=== PATIENT | male | born 1980 | race Caucasian/White ===

== ENCOUNTER 2024-11-29 01:31 | Day surgery (SDC) | payer BC, SELFPAY ==
[2024-11-20 09:46] VITALS: BMI 38.5
--- OUTSIDE RECORDS SUMMARY | 2024-11-29 01:34 | XMS_ITS | Referral Summary ---
Author Organization [facility] [place] [facility] Address [facility] [place] [address] Care Team Providers Care Professor Of Political Science Name Role Phone No, Physician Primary Care Provider [phone] Allergies No known active allergies Medications atomoxetine (STRATTERA) 40 mg capsule Take 1 capsule by mouth daily 08/17/2018 Active metoprolol XL (TOPROL-XL) 50 mg 24 hr tablet Take 50 mg by mouth daily 09/02/2018 Active benazepril (LOTENSIN) 10 mg tablet Take 1 tablet by mouth daily 06/14/2018 Active Active Problems Problem Noted Date Diagnosed Date Left elbow pain 05/30/2019 Social History Tobacco Use Types Packs/Day Years Used Date Smoking Tobacco: Never Smokeless Tobacco: Never Alcohol Use Standard Drinks/Week Comments Yes 0 (1 standard drink = 0.6 oz pur e alcohol) Personal Safety Answer Date Recorded Getting School Help Needed Not on file 08/27 Sex and Gender Information Value Date Recorded Sex Assigned at Not on file Legal Sex Male 7:23 PM USER EXPERIENCE RESEARCHER Gender Identity Not on file Sexual Orientation Not on file Occupation Industry Job Start Date Job End Date Teacher Not on file Not on file Not on file Last Filed Vital Signs Vital Sign Reading Time Taken Comments Blood Pressure 132/76 05/26/2013 6:17 AM USER EXPERIENCE RESEARCHER Pulse 81 05/26/2013 6:17 AM USER EXPERIENCE RESEARCHER Temperature 2.6 C (36.7 F) 05/26/2013 6:17 AM USER EXPERIENCE RESEARCHER Respiratory Rate - - Oxygen Saturation 94% 05/26/2013 6:17 AM USER EXPERIENCE RESEARCHER Inhaled Oxygen Concentration - - Weight 131.5 kg (290 lb) 02/04/2017 2:00 PM CDT Height 188 cm (6' 2) 02/04/2017 2:00 PM CDT Body Mass Index 37.23 02/04/2017 2:00 PM CDT Plan of Treatment Not on file Insurance Care Teams Professor Of Political Science Relationship Specialty Start Date End Date No, Physician PCP - General 05/29/19
--- OUTSIDE RECORDS SUMMARY | 2024-11-29 01:34 | XMS_ITS | Clinical Summary ---
Author Organization [facility] Care Team Providers Care Mathematician Research Name Role Phone Unavailable Primary Care Provider Unavailabl e Social History Tobacco Use Types Packs/Day Years Used Date Smoking Tobacco: Never Assessed Sex and Gender Information Value Date Recorded Sex Assigned at Not on file Legal Sex Male 9:42 AM CROZE CUTTER Gender Identity Not on file Sexual Orientation Not on file Plan of Treatment Health Maintenance Due Date Last Done Comments Hepatitis C Virus (HCV) Screening 1978 TdaP Immunization 1978 Hepatitis B Immunization (1 of 3 - 19+ 3-dose series) 1997 Colonoscopy 12/11/2023 Colorectal Cancer Screening 12/11/2023 Influenza Immunization (#1) 2024 03/19/2015 SARS-COV-2 Immunization ( season) 2024 02/06/2021, 08/03/2020 Respiratory Syncytial Virus (RSV) Immunization (Adult) (1 - 1-dose 75+ series) 2053 Meningococcal Immunization (ACWY) Aged Out No longer eligible b ased on patient's age to complete this topic Pneumococcal Immunization Combined Aged Out No longer eligible b ased on patient's age to complete this topic Rotavirus Immunization Aged Out No lo nger eligible based on patient's age to complete this topic
--- OUTSIDE RECORDS SUMMARY | 2024-11-29 01:34 | XMS_ITS | Clinical Summary ---
Author Organization [facility] [employer] Address [address] [place] [address] Care Team Providers Care Outreach Clinician Name Role Phone Samy Wilder MD Primary Care Provider [phone] Source Comments [facility],non-owned Affiliates and Associated Physician Practices is amultiple site organization consisting of ambulatory clinics and hospital sitesin [place], [place], [place] and [place]. This disclosure is being madepursuant to the Care Everywhere program and may not contain all information available regarding this patient. Last updated 18.[facility] [employer] Allergies No known active allergies Medications * Be aware that medications may not be up to date on this document. Alwaysverify current medications with the patient. atomoxetine (STRATTERA) 40 MG capsule Take 1 capsule by mouth once daily 2 08/17/2018 Active benazepril (LOTENSIN) 10 MG tablet Take 1 tablet by mouth once daily 2 06/14/2018 Active metoprolol succinate XL 24hr (TOPROL XL) 50 MG tablet Take 1 tablet by mouth once daily 90 tablet 4 09/02/2018 Active omeprazole (PRILOSEC) 20 MG capsule Take 1 capsule by mouth once daily 90 capsule 4 09/02/2018 Active Active Problems Problem Noted Date Diagnosed Date Palpitations 09/04/2018 Chest pain 09/04/2018 Heart palpitations 09/04/2018 Paroxysmal SVT (supraventricular tachycardia) Essential hypertension 09/04/2018 Class 3 severe obesity due t o excess calories without serious comorbidity with body mass index (BMI) of 40.0 to 44.9 in adult 09/04/2018 Social History Tobacco Use Types Packs/Day Years Used Date Smoking Tobacco: Never Smokeless Tobacco: Never Sex and Gender Information Value Date Recorded Sex Assigned at Not on file Legal Sex Male 11:23 AM CDT Gender Identity Not on file Sexual Orientation Not on file Last Filed Vital Signs Vital Sign Reading Time Taken Comments Blood Pressure 148/98 09/02/2018 3:51 PM CDT Pulse 76 09/02/2018 3:51 PM CDT Temperature - - Respiratory Rate - - Oxygen Saturation 100% 09/02/2018 3:51 PM CDT Inhaled Oxygen Concentration - - Weight 145.2 kg (320 lb) 09/02/2018 3:51 PM CDT Height 188 cm (6' 2) 09/02/2018 3:51 PM CDT Body Mass Index 41.09 09/02/2018 3:51 PM CDT Plan of Treatment Health Maintenance Due Date Last Done Comments COLOGUARD (AGES 45-75) - COL ON CA SCREENING 1978 COLON MONITORING 1978 COLONOSCOPY - COLON CA SCREENING 1978 CT COLONOGRAPHY - COLON CA SCREENING 1978 Colorectal Cancer Screening 1978 FIT - COLON CA SCREENING 1978 FLEX SIG - COLON CA SCREENING 1978 LIPID TESTING 1978 HIV SCREENING 1993 HEPATITIS C SCREENING 12/05/1996 DTAP/TDAP/TD VACCINES (1 - Tdap) 1997 HEPATITIS B VACCINE (1 of 3 - 19+ 3-dose series) 1997 COVID-19 VACCINE (1 - 2023-2 5 season) 2024 DEPRESSION SCREENING 06/14/2024 INFLUENZA VACCINE (Season Ended) 2025 ZOSTER VACCINE (1 of 2) 2028 HIB VACCINE Aged Out No longer eligi ble based on patient's age to complete this topic HPV VACCINE Aged Out No longer eligi ble based on patient's age to complete this topic MENINGOCOCCAL (Group B) VACC INE SHARED DECISION-MAKING Aged Out No longer eligibl e based on patient's age to complete this topic MENINGOCOCCAL GROUPS A/C/Y/W VACCINE Aged Out No longer eligible b ased on patient's age to complete this topic PNEUMOCOCCAL VACCINE Aged Out No long er eligible based on patient's age to complete this topic Insurance ANTHEM ANTHEM ANTHEM Care Teams Outreach Clinician Relationship Specialty Start Date End Date Samy Wilder MD [address] [place] [address] PCP - General 09/02/18
--- OUTSIDE RECORDS SUMMARY | 2024-11-29 01:34 | XMS_ITS | Clinical Summary ---
Author Organization [facility] Address [facility] [place] [address] Care Team Providers Care Auto Parts Salesperson Name Role Phone Samy Wilder MD Primary Care Provider [phone] Jarrell Smith MD Unavailable Allergies No known active allergies Medications benazepril 10 MG tablet Take 10 mg by mouth daily. 3 09/09/2017 Active metoprolol succinate 25 MG 24 hr tablet Take 1 tablet (25 mg total) by mouth daily. 90 tablet 3 10/01/2017 Active Active Problems Problem Noted Date Diagnosed Date SVT (supraventricular tachycardia) ([facility]) Family History Medical History Relation Comments Diabetes Father Hypertension Father [place] Paternal Grandfather Relation Status Comments Father Alive Maternal Grandfather Maternal Grandmother Mother Alive Paternal Grandfather Paternal Grandmother Alive Social History Tobacco Use Types Packs/Day Years Used Date Smoking Tobacco: Never Smokeless Tobacco: Never Alcohol Use Standard Drinks/Week Comments Yes 6.7 (1 standard drink = 0.6 oz p ure alcohol) Sex and Gender Information Value Date Recorded Sex Assigned at Not on file Legal Sex Male 9:57 AM CDT Gender Identity Not on file Sexual Orientation Straight 07/26/2018 10 :54 AM STARCHER AND TENTER RANGE FEEDER Last Filed Vital Signs Vital Sign Reading Time Taken Comments Blood Pressure 140/99 07/26/2018 12:29 PM STARCHER AND TENTER RANGE FEEDER Pulse 86 07/26/2018 12:29 PM STARCHER AND TENTER RANGE FEEDER Temperature 36.9 C (98.5 F) 07/26/2018 10:50 AM STARCHER AND TENTER RANGE FEEDER Respiratory Rate 18 07/26/2018 12:29 PM STARCHER AND TENTER RANGE FEEDER Oxygen Saturation 96% 07/26/2018 12:29 PM STARCHER AND TENTER RANGE FEEDER Inhaled Oxygen Concentration - - Weight 136.1 kg (300 lb) 07/26/2018 10:50 AM STARCHER AND TENTER RANGE FEEDER Height 188 cm (6' 2) 07/26/2018 10:50 AM STARCHER AND TENTER RANGE FEEDER Body Mass Index 38.52 07/26/2018 10:50 AM STARCHER AND TENTER RANGE FEEDER Plan of Treatment Health Maintenance Due Date Last Done Comments Colorectal Cancer Screening Colonoscopy (10 Years) 1978 Annual Physical 1981 Hepatitis C 1996 DTaP, Tdap and Td Vaccines ( 1 - Tdap) 1997 Hepatitis B Vaccines (1 of 3 - 19+ 3-dose series) 1997 COVID-19 Vaccine ( - 2023-2 5 season) 2024 HPV Vaccines Aged Out No longer eligi ble based on patient's age to complete this topic Meningococcal B Vaccine Aged Out No l onger eligible based on patient's age to complete this topic Meningococcal Vaccine Aged Out No concetta natasha eligible based on patient's age to complete this topic Pneumococcal Vaccine: Pediat rics (0 to 5 Years) and At-Risk Patients (6 to 49 Years) Aged Out No longer eligible b ased on patient's age to complete this topic RSV Immunizations Under 20 Months Aged Out No longer eligible based on patient's age to complete this topic Insurance [facility] Care Teams Auto Parts Salesperson Relationship Specialty Start Date End Date Samy Wilder MD [address] [place] [address] PCP - General FAMILY PRACTICE 09/29/17 Jarrell Smith MD [facility] [address] [place] [address] EP Pick Up And Delivery Driver CLINICAL CARDIAC ELECTROPHYSIOLOGY 09/30/17
--- OUTSIDE RECORDS SUMMARY | 2024-11-29 01:34 | XMS_ITS | Clinical Summary ---
Author Organization [facility] [place] [facility] Address [address] [place] [address] Care Team Providers Care Web Site Manager Name Role Phone No, Physician Primary Care Provider [phone] Allergies No known active allergies Medications atomoxetine (STRATTERA) 40 mg capsule Take 1 capsule by mouth daily 08/17/2018 Active metoprolol XL (TOPROL-XL) 50 mg 24 hr tablet Take 50 mg by mouth daily 09/02/2018 Active benazepril (LOTENSIN) 10 mg tablet Take 1 tablet by mouth daily 06/14/2018 Active Active Problems Problem Noted Date Diagnosed Date Left elbow pain 05/30/2019 Surgical History Surgery Date Site/Laterality Comments KNEE SURGERY 05/26/2013 MMD Medical History Medical History Date Comments Asthma Lateral epicondylitis, right elbow Family History Medical History Relation Name Comments Heart disease Other Hypertension Other Relation Name Status Comments Other Social History Tobacco Use Types Packs/Day Years Used Date Smoking Tobacco: Never Smokeless Tobacco: Never Alcohol Use Standard Drinks/Week Comments Yes 0 (1 standard drink = 0.6 oz pur e alcohol) Personal Safety Answer Date Recorded Getting School Help Needed Not on file 08/27 Sex and Gender Information Value Date Recorded Sex Assigned at Not on file Legal Sex Male 7:23 PM TUBE SORTER Gender Identity Not on file Sexual Orientation Not on file Occupation Industry Job Start Date Job End Date Teacher Not on file Not on file Not on file Obstetrics History Last Filed Vital Signs Vital Sign Reading Time Taken Comments Blood Pressure 132/76 05/26/2013 6:17 AM TUBE SORTER Pulse 81 05/26/2013 6:17 AM TUBE SORTER Temperature 2.6 C (36.7 F) 05/26/2013 6:17 AM TUBE SORTER Respiratory Rate - - Oxygen Saturation 94% 05/26/2013 6:17 AM TUBE SORTER Inhaled Oxygen Concentration - - Weight 131.5 kg (290 lb) 02/04/2017 2:00 PM CDT Height 188 cm (6' 2) 02/04/2017 2:00 PM CDT Body Mass Index 37.23 02/04/2017 2:00 PM CDT Plan of Treatment Not on file Insurance Care Teams Web Site Manager Relationship Specialty Start Date End Date No, Physician PCP - General 05/29/19
[2024-11-29 07:20] VITALS: BP 113/83; PULSE 72; RESP 16; TEMP 36.4; O2SAT 96; BMI 42.7
[2024-11-29] MEDS: LACTATED RINGERS 1,000 ML 150 ML IV CONT (07:36)
--- NOTE | 2024-11-29 08:07 | WPDANESEPPF ---
Anes - Initial Pre Proc Eval Procedure: Operation Date: 11/29/24 08:30 Proposed Procedures p Screening Colonoscopy - Jose Mccollum MD Date/Time: 11/29/24 08:07 Surgeon: Jose Mccollum MD Pre Op Diagnosis: screening for malignant neoplkasm of colon Patient Data Age: 43 Gender: M Height: 1.88 m Weight: 151.2 kg Last Vital Signs Temp 97.6 F 11/29/24 07:20 Pulse 72 11/29/24 07:20 Resp 16 11/29/24 07:20 BP 113/83 11/29/24 07:20 Pulse Ox 96 11/29/24 07:20 O2 Del Method Room Air 11/29/24 07:20 Allergies Allergy/AdvReac Type Severity Reaction Status Date / Time No Known Allergies Allergy Mild Verified 11/29/24 07:26 Home Medications ?Medication ?Instructions ?Recorded ?Confirmed ?Type sertraline 50 mg tablet (Zoloft) 75 mg (1.5 x 50 mg) PO DAILY #135 08/14/24 11/29/24 Rx tabs Patient hx anesthesia problems: none Family hx anesthesia problems: none Results Review: All pre-operative results and documents have been reviewed as part of the pre-operative evaluation. [facility] Past Medical History Medical History Adult BMI 40.0-44.9 kg/sq m Family History Family History Father Hypertension Family history of malignant neoplasm Mother No problems noted. Sibling No problems noted. Social History Social History Years smoked: 2 Smoking status: Former smoker Tobacco type: cigarettes Second hand tobacco smoke exposure: No Alcohol intake: former Alcohol use details: former ETOH abuse Substance use: current Substance use type: marijuana and opiates Other substance usage details: patient uses marijuana, hx of opiate use Living arrangements: with family Occupation/Education: occupation Additional occupation/education comments: Teacher Gender identity (if verbalized by the patient): Male Spiritual care concerns: No Anes - Eval Final PreProcedure Day of Procedure 11/29/24 08:07 Patient weight: morbidly obese Heart: regular rate and rhythm Lungs: clear to auscultation Airway: Mallampati scale class II Neurological: alert and oriented Last oral intake: >/= 8 hours ASA classification: III Emergent: no Anesthetic plan: proceed Anesthesia type and monitoring: general GIVS and standard monitoring Results Review: All pre-operative results and documents have been reviewed as part of the pre-operative evaluation. Informed Consent: The patient's anesthetic plan and its attendant risks and benefits were discussed with the patient/family/POA. Questions were solicited and answers provided to the satisfaction of the patient/family/POA.
--- NOTE | 2024-11-29 08:14 | PM.HPGS ---
History of Present Illness History of Present Illness Consent: Risks, benefits, and alternatives have been discussed and questions answered. Patient agrees to proceed with procedure. Chief complaint: screening for malignant neoplkasm of colon Narrative: Raleigh Diop is a 43 year old male here for first screening colonoscopy Review of Systems Review of Systems: All systems reviewed & are unremarkable except as noted in HPI and below PMFSH Past Medical History Medical History Adult BMI 40.0-44.9 kg/sq m Family History Family History Father Hypertension Family history of malignant neoplasm Mother No problems noted. Sibling No problems noted. Social History Social History Years smoked: 2 Smoking status: Former smoker Tobacco type: cigarettes Second hand tobacco smoke exposure: No Alcohol intake: former Alcohol use details: former ETOH abuse Substance use: current Substance use type: marijuana and opiates Other substance usage details: patient uses marijuana, hx of opiate use Living arrangements: with family Occupation/Education: occupation Additional occupation/education comments: Teacher Gender identity (if verbalized by the patient): Male Spiritual care concerns: No Meds Home Medications and Allergies Home Medications ?Medication ?Instructions ?Recorded ?Confirmed ?Type sertraline 50 mg tablet (Zoloft) 75 mg (1.5 x 50 mg) PO DAILY #135 08/14/24 11/29/24 Rx tabs Allergies Allergy/AdvReac Type Severity Reaction Status Date / Time No Known Allergies Allergy Mild Verified 11/29/24 07:26 Vital Signs Vital Signs - 24 hr 11/29/24 07:20 Temperature 97.6 F Pulse Rate 72 Respiratory Rate 16 Blood Pressure 113/83 Pulse Oximetry 96 Oxygen Delivery Room Air Exam Const: General: comfortable and no acute distress HENMT: Face/Nose/Sinus: Normal nares present Eyes: General: appearance normal, both eyes and all related structures Neck: Neck: no JVD Resp: Auscultation: clear to auscultation bilaterally Cardio: Rate: regular rate Rhythm: regular rhythm GI: Inspection: non-distended GI Palp: Yes Soft to palpation Skin: General skin exam: normal color Neuro: General: gait normal Speech: normal speech Extrem: General: normal to inspection Psych: Mental Status: mental status grossly normal Assessment and Plan Assessment and plan (1) Screening for colon cancer: Code(s): Z12.11 - Encounter for screening for malignant neoplasm of colon Status: Acute Assessment and Plan: colonoscopy
--- NOTE | 2024-11-29 08:27 | S_PTH ---
PATIENT: Raleigh Diop LOC: [facility]#:[id number] AGE/SX: 43/M ROOM: RE11/29/[address]: Jose Mccollum MD : 1980 BED: DIS: 11/29/2024 SPEC #: [id number] RECD: 11/29/24 09:42 STATUS: CHAYO REQ #: [id number] ANA: 11/29/24 08:[address]: Jose Mccollum DEPT: [facility] Surgical RECD BY: Patito Barnes ENTERED: 11/29/24 09:44 SP TYPE: Surgical OTHR DR: Samy Wilder MD Tissues: A - Colon Polypectomy B - Colon Polypectomy C - Colon Polypectomy Procedures: Hematoxylin and Eosin Stain Gross and Microscopic Level 4
[2024-11-29 08:37] VITALS: BP 124/63; PULSE 80; RESP 16; O2SAT 98
[2024-11-29 08:47] VITALS: BP 103/81; PULSE 74; RESP 16; O2SAT 98
[2024-11-29 08:57] VITALS: BP 118/56; PULSE 70; RESP 16; O2SAT 98
== END 2024-11-29 09:02 | disposition home or self-care (01) ==
PROVIDERS: PCP Family Medicine; Referring Provider Nurse Practitioner Family; Visit Provider Internal Medicine Gastroenterology
PROC: 0DJD8ZZ Inspection of Lower Intestinal Tract, Via Natural or Artificial Opening Endoscopic (ICD-10-PCS; CPT 45378; principal; 2024-11-29 08:30)
DX: Z12.11 Encounter for screening for malignant neoplasm of colon (principal); D12.3 Benign neoplasm of transverse colon; D12.5 Benign neoplasm of sigmoid colon; K63.5 Polyp of colon; F12.90 Cannabis use, unspecified, uncomplicated; E66.01 Morbid (severe) obesity due to excess calories; Z68.41 Body mass index [BMI] 40.0-44.9, adult; Z87.891 Personal history of nicotine dependence; Z80.9 Family history of malignant neoplasm, unspecified
CPT/HCPCS: 45380; 45385; 88305; J2003; J2704; J7120